=== PATIENT | male | born 1945 | race Caucasian/White ===

== ENCOUNTER 2016-12-22 21:13 | Inpatient (IN) | payer OTHER ==
--- NOTE | ~2016-12-22 | DS ---
Discharge Summary [facility] [address] [place]. [address] NAME: MICHELLE GONZALES : 43 STATUS : ADM IN [facility]#: [id number] AGE: 71 ADM/REG DATE : 12/22/16 MR#: [id number] REPORT SERV DATE: 12/25/16 DICTATED BY: ROMERO OBREGON DATE: 12/25/16 REPORT STATUS : Draft TRANSCRIBED BY: MODL DATE: 12/25/16 ADMISSION DATE: 12/22/2016 DISCHARGE DATE: 12/25/2016 DISCHARGE DIAGNOSES: 1. Left hip fracture, status post left total hip arthroscopy on 12/23/[address] Norris. 2. Left hip pain due to #1. 3. Chronic pain on daily narcotics. 4. Chronic obstructive pulmonary disease, stable. IMAGIN. CT of the brain on 12/22/2016, impression, unremarkable noncontrast head CT. No acute intracranial hemorrhage or other acute intracranial pathology. 2. Chest x-ray on 12/22/2016, impression, no acute cardiopulmonary abnormality. 3. Hip x-ray on 12/22/2016, impression, left femoral neck fracture. 4. Pelvis x-ray on 12/22/2016, impression, left femoral neck fracture. 5. Pelvis portable x-ray on 12/23/2016, impression, left hip prosthesis. No separate abnormality. LABORATORY DATA: On 12/25/2016, hemoglobin of 10.7, and hematocrit of 30.82. CONSULTATIONS: Orthopedic, Dr. Norris on 12/22/2016. COURSE OF HOSPITAL STAY: Please refer to history and physical dictated by Dr. Jesse Hillman on 12/23/2016, as well as consultation note by Dr. Norris on 12/22/2016. This patient is a 71-year-old male, who presented to [facility]'s Emergency Room with complaints of recent fall and possible left hip fracture. The patient was at home when he fell. The patient was evaluated three days post fall. The patient at that time stated, he was having excruciating pain with movement, ambulating with assistance at home. At that time, the patient did state that he did not lose consciousness, but did hit his head. Imaging as noted above and the patient was monitored, no acute signs, head trauma was ruled out. 1. Left hip fracture, status post left total hip arthroscopy on 12/23/[address] Norris. The patient was admitted to the hospital noting left femoral fracture. The patient did undergo above procedure with Dr. Norris. The patient will follow up with Dr. Norris in the outpatient and Physical Therapy has evaluated the patient, he has been able to ambulate with using a walker. Home Health Care will follow the patient as well as Physical Therapy. He will follow up with Orthopedic for further recommendations. 2. Left hip pain, due to #1. The patient is on chronic pain medications. We will have Pain Management adjust medications as needed. No pain prescription were given upon discharge. At this time, the patient's pain is being controlled. 3. Chronic pain on daily narcotics. Again, the patient will follow up with the Pain Management regarding medication adjustments. 4. Chronic obstructive pulmonary disease. The patient was started on prednisone and doxycycline upon admission. Prednisone has been discontinued. The patient will Discharge Summary [address] [address] NAME: MICHELLE GONZALES : 43 STATUS : ADM IN [facility]#: [id number] AGE: 71 ADM/REG DATE : 12/22/16 MR#: [id number] REPORT SERV DATE: 12/25/16 DICTATED BY: ROMERO OBREGON DATE: 12/25/16 REPORT STATUS : Draft TRANSCRIBED BY: GUILLE DATE: 12/25/16 complete two additional days of doxycycline and follow up with his primary care. DISCHARGE MEDICATIONS: 1. Colace 100 mg one p.o. twice daily. 2. Doxycycline 100 mg one p.o. twice daily. 3. Zantac 150 mg one p.o. daily. 4. Ferrous sulfate 300 mg p.o. at breakfast and supper. 5. Multivitamin one daily. 6. Coumadin sliding scale. 7. Albuterol inhaler three puffs inhaled three to four times a day p.r.n. for shortness of breath. 8. Oxycodone 5 mg tablet 20 mg p.o. four times daily p.r.n. for pain. 9. Zofran 4 mg one p.o. twice daily. 10.Ativan 0.5 mg p.o. twice daily p.r.n. for anxiety. This patient is being discharged home in hemodynamically stable condition and will follow up Orthopedic and the primary care. medical practice manager has worked with the patient regarding discharge needs, walker has been provided, as well as home health care, and physical therapy. This discharge took greater than 30 minutes. MONTEZ/GUILLE Romero Obergon NP / [id number] CC: MD Tan Fletcher DO
--- NOTE | ~2016-12-22 | CN ---
Consultation Report [facility] [address] [place]. [address] NAME: MICHELLE RODRÍGUEZ : 43 STATUS : ADM IN [facility]#: [id number] AGE: 71 ADM/REG DATE : 12/22/16 MR#: [id number] REPORT SERV DATE: 12/23/16 DICTATED BY: PEDRITO NORRIS DATE: 12/23/16 REPORT STATUS : Draft TRANSCRIBED BY: MODL DATE: 12/23/16 CONSULTATION DATE OF CONSULTATION: 12/23/2016 CHIEF COMPLAINT: Left hip pain. HISTORY: Mr. Rodríguez is a 71-year-old male, who fell three days ago at home. He had hip pain after the fall, but did not seek medical attention. After continuation of his hip pain and having extreme difficulty ambulating at home, he presented to [facility] Emergency Room yesterday, where x-ray showed a displaced left femoral neck fracture. Now, I have been asked to see him for evaluation and treatment. On questioning, he complains of severe left hip pain. He denies any other noted extremity injuries. He apparently did have some degree of closed-head injury related to the fall. PHYSICAL EXAMINATION: GENERAL: He is awake, alert and oriented x3. He has some minimal cervical tenderness. He has limited cervical range of motion, but no increased pain with range of motion. There is no evidence of bony injury to either upper extremity or his right lower extremity. With regard to his left lower extremity, it is shortened and slightly externally rotated. He has no pain with AP or lateral compression of his pelvis. There is moderate trochanteric tenderness. He is non-tolerant to any attempted active or passive left hip range of motion due to severe pain. He has no tenderness in the mid thigh distally. There was palpable pedal pulses and normal sciatic nerve function on the left. DIAGNOSTIC STUDIES: X-rays of his left hip show displaced transcervical left femoral neck fracture. IMPRESSION: Displaced transcervical left femoral neck fracture. I have discussed the treatment options with Mr. Rodríguez with the recommendation for left total hip arthroplasty. Risks of the procedure were discussed including infection, neurovascular damage, DVT, PE, blood loss requiring transfusion, leg length discrepancy, dislocation, component loosening, component wear, anesthetic complications, and others. He has a good understanding and has requested to proceed with surgical scheduling. AL/GUILLE Pedrito Norris M.D. Consultation Report [address] [place]. [address] NAME: MICHELLE RODRÍGUEZ : 43 STATUS : ADM IN PAT#: [id number] AGE: 71 ADM/REG DATE : 12/22/16 MR#: [id number] REPORT SERV DATE: 12/23/16 DICTATED BY: PEDRITO NORRIS DATE: 12/23/16 REPORT STATUS : Draft TRANSCRIBED BY: MODL DATE: 12/23/16 / [id number] CC: MD Tan Fletcher DO
--- NOTE | ~2016-12-22 | HP ---
History And Physical [place] [address] [facility] [place]. [address] NAME: MICHELLE GONZALES : 43 STATUS : ADM IN PAT#: [id number] AGE: 71 ADM/REG DATE : 12/22/16 MR#: [id number] REPORT SERV DATE: 12/23/16 DICTATED BY: KINSEY DANIEL DATE: 12/23/16 REPORT STATUS : Draft TRANSCRIBED BY: MODL DATE: 12/23/16 DATE OF ADMISSION: 12/22/2016 CHIEF COMPLAINT: A 71-year-old male presenting with a recent fall and left hip fracture. HISTORY OF PRESENT ILLNESS: The patient's history was obtained through careful interview with the patient, coupled with review of [facility] medical records. The patient has had three falls over the last three months that he can recall prior to the one that he suffered three days ago. He states that he got up out of his chair to let his dogs go outside, lost his balance and collapsed to the ground. He medially had extreme left hip pain that radiates down his left leg, an aching quality, and it has been a persistent pain over last three days, 10/10 severity, exacerbated by movement, making it really impossible to ambulate without assistance. When he first fell, there was no loss of consciousness, but he did hit his head. He was on the ground for about 45 minutes before he was able to get himself up into a chair again. He states the last three days he has basically sat in a recliner. He was unable to change his clothes because of the pain in mobility in his hips. No headache. No confusion. He has had nausea but no vomiting. No weight loss. No fevers, chills. No shortness of breath. No chest pain. REVIEW OF SYSTEMS: Otherwise, a 14-point review of systems was obtained and was negative. PAST MEDICAL HISTORY: 1. COPD. 2. Aspiration pneumonia. 3. Previous dysphagia after cervical spine surgery with a PEG tube placed but then removed with regained function of his swallowing reflex apparently. 4. Lung nodule. 5. Hypothyroidism. 6. Anxiety. 7. Gastroesophageal reflux disorder. 8. Benign prostatic hypertrophy. 9. Chronic pain management, on daily narcotics. PAST SURGICAL HISTORY: 1. C3-C4 cervical spine fusion. 2. C6-C7 cervical spine surgery. 3. PEG tube placed by Dr. Bernal and then removal. 4. Lumbar spine surgery. History And Physical [address] [address] NAME: MICHELLE GONZAELS : 43 STATUS : ADM IN [facility]#: [id number] AGE: 71 ADM/REG DATE : 12/22/16 MR#: [id number] REPORT SERV DATE: 12/23/16 DICTATED BY: KINSEY DANIEL DATE: 12/23/16 REPORT STATUS : Draft TRANSCRIBED BY: GUILLE DATE: 12/23/16 5. Right inguinal hernia repair. 6. Right parathyroidectomy. 7. Left thyroidectomy. 8. Sinus surgery. 9. Appendectomy. 10.Left arm melanoma removal in 2007. 11.Negative bilateral axillary lymph node biopsy. 12.Carpal tunnel release. 13.Bilateral shoulder operations. 14.Hemorrhoidectomy. ALLERGIES: MORPHINE AND HYDROCODONE. SOCIAL HISTORY: The patient smokes cigarettes. No alcohol abuse. He is to his who is older than him at 83 years of age, but she is in good health. They live on [place], [place]. The patient has no biological children. He used to work in a ceramic tile. No known asbestos exposure. FAMILY HISTORY: Lung cancer, COPD, heart disease. Had a father who at 55 years of age of complications of peptic ulcer disease. CURRENT MEDICATIONS: Include Goody's powder, Combivent, Ativan p.r.n., Zofran, Roxicodone 20 mg p.o. q.4 hours p.r.n., and Zantac 150 mg p.o. daily. PHYSICAL EXAMINATION: VITAL SIGNS: Temperature 98.4, pulse 94, blood pressure 161/84, respiratory rate 17, and O2 saturation of 100% on room air. GENERAL: A pleasant, cooperative male, but he describes distress from his left hip pain. HEENT: Pupils equal, round, and reactive to light. No conjunctival pallor. No scleral icterus. Nares are patent. Oropharynx is clear of obstruction. Moist mucous membranes. NECK: Trachea midline. No thyromegaly. LYMPH: No cervical lymphadenopathy. No supraclavicular lymphadenopathy. RESPIRATORY: Clear to auscultation at bases. No wheezes, rales, or rhonchi. Normal respiratory effort. CARDIOVASCULAR: Regular rate and rhythm. No murmurs, rubs, or gallops. No extremity edema is appreciated. ABDOMEN: Soft, nontender, nondistended. Normal bowel sounds auscultated throughout. No hepatosplenomegaly. DERMATOLOGICAL: Warm, dry extremities. No pallor. No cyanosis. PSYCHIATRIC: Normal affect. Good mood. Alert and oriented x3. LABORATORY DATA: White blood cell count 12.2, hemoglobin 12, hematocrit 34, and platelets 272. Sodium 137, potassium 4.0, chloride 100, bicarb 29, BUN 13, creatinine 0.5, glucose 94. INR 1.1. STUDIES: History And Physical [address] [address] NAME: MICHELLE GONZALES : 43 STATUS : ADM IN [facility]#: [id number] AGE: 71 ADM/REG DATE : 12/22/16 MR#: [id number] REPORT SERV DATE: 12/23/16 DICTATED BY: KINSEY DANIEL DATE: 12/23/16 REPORT STATUS : Draft TRANSCRIBED BY: GUILLE DATE: 12/23/16 1. X-ray shows left hip fracture. 2. CT scan of the brain without contrast shows no acute intracranial process. ASSESSMENT AND PLAN: 1. Left hip fracture. Consult Dr. Norris, orthopedic surgeon. Place on IV narcotic, pain management. 2. Closed head injury. Monitor closely. 3. Chronic obstructive pulmonary disease. Seems quite severe and with continued tobacco abuse. We will use perioperative prednisone, DuoNeb nebulizers, and doxycycline. Check a baseline ABG and a baseline chest x-ray. Check an EKG. 4. Chronic pain management. KPL/MODL Kinsey Daniel M.D. / [id number] CC: Swapnil Patel DO
--- NOTE | ~2016-12-22 | OP ---
Record Of Operation [facility] [address] [place]. [address] NAME: MICHELLE RODRÍGUEZ : 43 STATUS : ADM IN PAT#: [id number] AGE: 71 ADM/REG DATE : 12/22/16 MR#: [id number] REPORT SERV DATE: 12/23/16 DICTATED BY: PEDRITO NORRIS DATE: 12/23/16 REPORT STATUS : Draft TRANSCRIBED BY: MODL DATE: 12/23/16 DATE OF PROCEDURE: 12/23/2016 PREOPERATIVE DIAGNOSIS: Subacute displaced left femoral neck fracture. POSTOPERATIVE DIAGNOSIS: Subacute displaced left femoral neck fracture. PROCEDURE: Left total hip arthroplasty. SURGEON: Pedrito Norris M.D. MANAGER DOMESTIC: Jeffrey Taveras. ANESTHESIA: General endotracheal. ESTIMATED BLOOD LOSS: 300 mL. COMPLICATIONS: None. DRAINS: ConstaVac x1. IMPLANTS: DePuy Roebling 54 mm outer diameter cup with a 36 mm inner diameter, +4 lateralized polyethylene liner. The femoral component was size 6 high offset Dixie stem with a 36 mm +1.5 head and neck segment. INDICATIONS FOR SURGERY: Mr. Rodríguez is a 71-year-old male with severe left hip pain secondary to subacute displaced left femoral neck fracture. He presents requesting the above-mentioned procedure. Risks of the procedure as detailed in the orthopedic consult and operative consent were discussed prior to proceeding. He fully understood and has requested to proceed. PROCEDURE IN DETAIL: The patient was brought to the operating room and after adequate induction of anesthesia, was positioned in the lateral decubitus position using the hip taping foreman positioners. All appropriate pressure points were padded and axillary roll was placed. The appropriate operative site was identified and confirmed by both the surgeon and the operating room staff in time out. The hip was then prepped and draped in the usual sterile fashion. A posterior lateral approach to the hip was performed. The skin and subcutaneous tissues were incised sharply using a #10 blade. Electrocautery was used as needed to maintain hemostasis. The fascia priscila and fascia over the gluteus charla were divided in line with the incision. The fibers of the gluteus charla were split bluntly. The sciatic nerve was identified and carefully protected throughout the remainder of the case. The Charnley retractor was then placed. The hip was placed in internal rotation and the superior border of the piriformis tendon identified. A full thickness capsulotomy was begun Record Of Operation [facility] [address] [place]. [address] NAME: MICHELLE RODRÍGUEZ : 43 STATUS : ADM IN PAT#: [id number] AGE: 71 ADM/REG DATE : 12/22/16 MR#: [id number] REPORT SERV DATE: 12/23/16 DICTATED BY: PEDRITO NORRIS DATE: 12/23/16 REPORT STATUS : Draft TRANSCRIBED BY: GUILLE DATE: 12/23/16 at the superior border of the piriformis tendon and extended anteriorly/inferiorly using an inside/out technique. A portion of the short external rotators were taken down in the capsular exposure. Leg length measurements were then taken. The hip was then dislocated posteriorly. The femoral neck was then marked and resected at the predetermined level from templating using an oscillating saw. Attention was then turned to the femur and the medial aspect of the greater trochanter was debrided of all cortical bone and soft tissue. The intramedullary canal was opened with a triple reamer. The femur was then sequentially reamed to the appropriate size Dixie stem. The femur was then sequentially broached, once again to the appropriately sized implant. The femoral neck resection was slightly revised using a calcar mill to bring it to the level of the femoral broach. The broach was then removed. Attention was then turned to the acetabulum and the acetabulum was debrided of all labral remnants, osteophytes, and the medial fibrofatty tissue was debrided and the true medial wall of the acetabulum identified. The acetabulum was then sequentially reamed from a size 43 mm hemispherical reamer to a reamer 1 mm smaller than the final component. At this level there was circumferential bleeding of subchondral bony surface. Any subchondral cysts were curetted. The true acetabular cup was then impacted into the acetabulum and a trial liner placed. A trial reduction was then performed. The leg lengths were felt to be equal. The hip was stable at its limited extension and external rotation and to 90 degrees of flexion and 80 degrees of internal rotation. The hip was also stable in the position of sleep. At this point all trial components were removed and the acetabular hole staff scientist placed in the acetabular shell. The true acetabular liner was then impacted in the clean acetabular shell. The femoral canal was then copiously irrigated with normal saline and suctioned dry. The true femoral stem was then impacted into the femur to an identical depth and identical anteversion of the trial component. A trial reduction was once again performed to assure that there was no change in leg length or stability. The true femoral head ball was then impacted into the clean femoral taper. The acetabulum was inspected to be sure it was free of all foreign matter and the hip reduced. The wound was copiously irrigated with pulsatile lavage and normal saline. The capsule was repaired using interrupted #1 Vicryl suture in [id number] fashion. The short external rotators were repaired using #5 Ethibond in horizontal mattress fashion. Drain placed deep to the fascia. The fascia was closed with interrupted #5 Ethibond sutures in [id number] fashion. The subcutaneous tissues approximated with interrupted 2-0 Vicryl suture and the skin stapled. Sterile dressing applied. The patient awakened and taken to the recovery room in stable condition. POSTOP PLAN: The patient is to be mobilized weightbearing as tolerated with physical therapy. Posterior hip dislocation precautions. The patient is to be on Coumadin and mechanical deep venous thrombosis prophylaxis. Record Of Operation [place] [id number] [facility] [place]. [address] NAME: MICHELLE RODRÍGUEZ : 43 STATUS : ADM IN [facility]#: [id number] AGE: 71 ADM/REG DATE : 12/22/16 MR#: [id number] REPORT SERV DATE: 12/23/16 DICTATED BY: PEDRITO NORRIS DATE: 12/23/16 REPORT STATUS : Draft TRANSCRIBED BY: GUILLE DATE: 12/23/16 AL/GUILLE Pedrito Norris M.D. / [id number] CC: MD Tan Fletcher DO
[2016-12-22 20:39] LABS: BASOPHILS 0.2 %; BASOPHILS ABSOLUTE 0.03 10/3/uL (0.0-0.16); EOSINOPHILS ABSOLUTE 0.37 10/3/uL (0.0-0.53); HEMATOCRIT 33.7 % (40.0-51.0); HEMOGLOBIN 11.6 g/dL (13.6-17.8); IMMATURE GRANULOCYTES 0.3 %; IMMATURE GRANULOCYTES ABSOLUTE 0.04 10/3/uL (0.0-0.11); LYMPHOCYTES 12.6 %; LYMPHOCYTES ABSOLUTE 1.54 10/3/uL (0.67-4.30); MEAN CORPUS HGB CONC 34.4 g/dL (32.0-36.0); MEAN CORPUSCULAR HEMOGLOB 30.4 pg (26.0-34.0); MEAN CORPUSCULAR VOLUME 88.5 fL (80-100); MEAN PLATELET VOLUME 8.6 fL (9.2-13.0); MONOCYTES 7.4 %; NEUTROPHILS 76.5 %; NEUTROPHILS ABSOLUTE 9.36 10/3/uL (2.02-8.40); PLATELET COUNT 272 10/3/uL (150-400); RBC DISTRIBUTION WIDTH 14.7 % (12.0-16.0); RED CELL COUNT 3.81 10/6/uL (4.7-6.1)
[2016-12-22 20:40] LABS: ER CBC TAT 0 Hrs 05 Mins; MANUAL DIFF NO %; WHITE BLOOD CELLS 12.2 10/3/uL (4.5-10.5)
[2016-12-22 20:49] LABS: INTERNATIONAL NORMAL RATI 1.1 UNITS (-); PARTIAL THROMBO TIME 33.7 SEC (22.5-37.2); PROTIME (NOT ORD) 14.4 SEC (12.0-14.5)
[2016-12-22 20:50] LABS: BUN (BLOOD UREA NITROGEN) 13 MG/DL (6-23); CHLORIDE, SERUM 100 MMOL/L (96-112); CO2 (CARBON DIOXIDE) 29 MMOL/L (24-34); GFR AFRICAN AMERICAN 125 ML/MIN (>=60); GFR NON AFRICAN AMERICAN 108 ML/MIN (>=60); GLUCOSE, SERUM 99 MG/DL (60-99); SODIUM, SERUM 137 MMOL/L (135-148)
[~2016-12-22 21:13] MED LIST: ACET500CAP PO; ATV.5 PO; AUG875 PO; BIAXIN250 PO; CRESTOR20 MG PO; DSS PO; FISH OIL PO; HABIT21 TOP; KLONO5 PO; MOBIC15 MG PO; NORCO1 TA2 PO; OXYCOD PO; OXYCON20 PO; OXYCONTIN30 MG PO; P10 PO; PREDNISONE PO; PROAIR HFA INH; PROVENTSOL INH; PROVHFA INH; RANITIDINE300 MG PO; ROXICODONE15 MG PO; ROXICODONE30 MG PO; SPIRIVA INH; V2 PO; VISINE TEARS15 ML OPH; ZANTAC 150 PO; ZANTAC150 MG PO; ZOCOR40 PO
[2016-12-22] MEDS ORDERED: ZANTAC150 MG PO (21:44)
[2016-12-22] MEDS ORDERED: OXYCOD PO (21:45)
[2016-12-22] MEDS ORDERED: COMBIVENT RESPIM4 GM INH (21:45)
[2016-12-22] MEDS ORDERED: ZOFRAN4 PO (21:45)
[2016-12-22] MEDS ORDERED: GOODY'S EX-STR1 EAC1 PO (21:46)
[2016-12-22] MEDS ORDERED: ATV.5 PO (21:46)
[2016-12-22 22:43] LABS: ASCORBIC ACID (UR NOT ORDER) NEG (NEG); BILIRUBIN, URINE NEGATIVE (NEG); KETONE, URINE NEGATIVE (NEG); LEUKOCYTE ESTERASE(NOT OR NEG (NEG); WBC (NOT ORDERED) (RFLEX) < 1 (0-5)
[2016-12-23 00:02] LABS: BE (BASE EXCESS) 0.1 MEQ/L (0 +/- 2.5); CARBOXYHEMOGLOBIN 3.3 % (0-3); HCO3 (ACTUAL BICARBONATE) 24.1 MEQ/L (23-27); HEMOBLOGIN CONTENT 12.5 G/DL (14-18); INSTRUMENT SERIAL # 8083; METHEMOGLOBIN 0.1 % (0-3); O2 CONTENT 16.2 VOL% (18-24); OPERATOR ID 23712; PCO2 (CO2 TENSION) 37 MMHG (35-45); PO2 (O2 TENSION) 77 MMHG (79-93); SAMPLE Arterial; pH 7.43 (7.37-7.43)
[2016-12-23 05:29] LABS: BASOPHILS 0.3 %; BASOPHILS ABSOLUTE 0.03 10/3/uL (0.0-0.16); EOSINOPHILS 4.5 %; EOSINOPHILS ABSOLUTE 0.48 10/3/uL (0.0-0.53); HEMATOCRIT 35.5 % (40.0-51.0); HEMOGLOBIN 12.3 g/dL (13.6-17.8); IMMATURE GRANULOCYTES 0.3 %; IMMATURE GRANULOCYTES ABSOLUTE 0.03 10/3/uL (0.0-0.11); LYMPHOCYTES 17.3 %; LYMPHOCYTES ABSOLUTE 1.87 10/3/uL (0.67-4.30); MEAN CORPUS HGB CONC 34.6 g/dL (32.0-36.0); MEAN CORPUSCULAR HEMOGLOB 30.3 pg (26.0-34.0); MEAN CORPUSCULAR VOLUME 87.4 fL (80-100); MEAN PLATELET VOLUME 8.5 fL (9.2-13.0); MONOCYTES 7.3 %; MONOCYTES ABSOLUTE 0.79 10/3/uL (0.21-1.20); NEUTROPHILS 70.3 %; NEUTROPHILS ABSOLUTE 7.58 10/3/uL (2.02-8.40); PLATELET COUNT 290 10/3/uL (150-400); RBC DISTRIBUTION WIDTH 14.9 % (12.0-16.0); RED CELL COUNT 4.06 10/6/uL (4.7-6.1); WHITE BLOOD CELLS 10.8 10/3/uL (4.5-10.5)
[2016-12-23 05:30] LABS: MANUAL DIFF NO %
[2016-12-23 05:32] LABS: INTERNATIONAL NORMAL RATI 1.2 UNITS (-); PROTIME (NOT ORD) 14.7 SEC (12.0-14.5)
[2016-12-23 05:55] LABS: A/G RATIO 0.9 (0.7-1.9); ALBUMIN 2.6 G/DL (3.5-5.0); ALKALINE PHOSPHATASE 60 U/L (45-117); CALCIUM, SERUM 8.3 MG/DL (8.5-10.4); CHLORIDE, SERUM 106 MMOL/L (96-112); CO2 (CARBON DIOXIDE) 27 MMOL/L (24-34); CREATININE 0.43 MG/DL (0.70-1.30); GFR AFRICAN AMERICAN 134 ML/MIN (>=60); GFR NON AFRICAN AMERICAN 115 ML/MIN (>=60); GLOBULIN 2.9 G/DL (2.5-4.1); GLUCOSE, SERUM 89 MG/DL (60-99); POTASSIUM, SERUM 3.9 MMOL/L (3.5-5.3); SGOT(AST) 17 U/L (5-40); SGPT(ALT) 22 U/L (5-65); SODIUM, SERUM 141 MMOL/L (135-148); TOTAL BILIRUBIN 0.6 MG/DL (0-1.2); TOTAL PROTEIN 5.5 G/DL (6.0-8.5); TROPONIN I <0.02 NG/ML (<0.05)
[2016-12-23 06:01] LABS: BUN (BLOOD UREA NITROGEN) 9 MG/DL (6-23)
[2016-12-24 05:23] LABS: HEMATOCRIT 32.6 % (40.0-51.0); HEMOGLOBIN 11.3 g/dL (13.6-17.8)
[2016-12-24 05:29] LABS: INTERNATIONAL NORMAL RATI 1.3 UNITS (-); PROTIME (NOT ORD) 16.3 SEC (12.0-14.5)
[2016-12-24 05:42] LABS: BUN (BLOOD UREA NITROGEN) 9 MG/DL (6-23); CALCIUM, SERUM 8.2 MG/DL (8.5-10.4); CHLORIDE, SERUM 102 MMOL/L (96-112); CO2 (CARBON DIOXIDE) 25 MMOL/L (24-34); CREATININE 0.44 MG/DL (0.70-1.30); GFR AFRICAN AMERICAN 132 ML/MIN (>=60); GFR NON AFRICAN AMERICAN 114 ML/MIN (>=60); GLUCOSE, SERUM 115 MG/DL (60-99); SODIUM, SERUM 138 MMOL/L (135-148)
[2016-12-25 04:41] LABS: HEMATOCRIT 30.8 % (40.0-51.0); HEMOGLOBIN 10.7 g/dL (13.6-17.8)
[2016-12-25 04:58] LABS: INTERNATIONAL NORMAL RATI 1.4 UNITS (-); PROTIME (NOT ORD) 17.2 SEC (12.0-14.5)
[2016-12-25] MEDS ORDERED: C5 PO (12:55)
[2016-12-25] MEDS ORDERED: MONODOX100 MG PO (13:02)
== END 2016-12-25 14:21 | disposition home or self-care (01) | DRG 470 ==
LOC: ER 21:13 → 3SO 21:49
PROVIDERS: Emergency Medicine; Internal Medicine; Specialist
PROC: 0SRB02Z Replacement of Left Hip Joint with Metal on Polyethylene Synthetic Substitute, Open Approach (ICD-10-PCS; principal; 2016-12-22)
DX: S72.002A Fracture of unspecified part of neck of left femur, initial encounter for closed fracture (principal); J44.9 Chronic obstructive pulmonary disease, unspecified; W18.30XA Fall on same level, unspecified, initial encounter; Y92.009 Unspecified place in unspecified non-institutional (private) residence as the place of occurrence of the external cause; K21.9 Gastro-esophageal reflux disease without esophagitis
CPT/HCPCS: 36415; 70450; 71010; 72170; 73502-LT; 80048; 80053; 81001; 82805; 83735; 83880; 84443; 84484; 85014; 85018; 85025; 85610; 85730; 86850; 86900; 86901; 87641; 88305; 88311; 93005; 94640; 96374; 97110-GP; 97116-GP; 97161-GP; 97165-GO; 97535-GO; 99291; A9270-GY; C1776; G8987-CK-GO; G8988-CL-GO; G8989-CK-GO; J0690; J1170; J1720; J1885; J2274; J2370; J2405; J2710; J2795; J3010; J3370

== ENCOUNTER 2017-01-11 06:28 | Emergency (ER) | payer OTHER ==
[~2017-01-11 06:28] MED LIST changes: +C5 PO; +COMBIVENT RESPIM4 GM INH; +GOODY'S EX-STR1 EAC1 PO; +MONODOX100 MG PO; +ZOFRAN4 PO
== END 2017-01-11 07:23 | disposition home or self-care (01) ==
LOC: ER 06:28
DX: S70.02XA Contusion of left hip, initial encounter (principal); F17.200 Nicotine dependence, unspecified, uncomplicated; J44.9 Chronic obstructive pulmonary disease, unspecified; F41.9 Anxiety disorder, unspecified; K21.9 Gastro-esophageal reflux disease without esophagitis; Z88.5 Allergy status to narcotic agent; Z79.899 Other long term (current) drug therapy; Z79.01 Long term (current) use of anticoagulants; W19.XXXA Unspecified fall, initial encounter
CPT/HCPCS: 73502-LT; 99284; A9270-GY